=== PATIENT | female | born 1950 | race Caucasian/White ===

== ENCOUNTER 2020-07-18 12:03 | Emergency (ER) | payer MEDICARE, OTHER, SELFPAY ==
--- NOTE | ~2020-07-18 | XR_ITS ---
EXAMINATION: XR chest 1V portable INDICATION: Shortness of breath TECHNIQUE: Portable AP chest at 1301 hours COMPARISON: 01/08/2019 FINDINGS: A right internal jugular Port-A-Cath ends with its tip in the right atrium. An area of beauty culturist apprentice benjamin scarring is present in the left lung apex. No acute airspace opacities are identified. There is n o pleural effusion or pneumothorax. Median sternotomy wires are consistent with prior cardiac surgery . Calcified bilateral breast implants are noted. Surgical clips in the right upper quadrant are likel y from prior cholecystectomy. IMPRESSION: 1. No acute cardiopulmonary abnormality. Reviewed, dictated and finalized at location A.
[2020-07-18 12:08] VITALS: BP 129/74; PULSE 79; RESP 20; TEMP 36.8; O2SAT 96
--- NOTE | 2020-07-18 12:21 | ECG_ITS ---
Measurements Intervals [place] Rate: 79 P: 44 VA: 152 QRS: 39 QRSD: 82 T: 119 QT: 369 QTc: 425 Interpretive Statements SINUS RHYTHM ATRIAL PREMATURE COMPLEX INCOMPLETE RIGHT BUNDLE BRANCH BLOCK LOW QRS VOLTAGE- DIFFUSE LEADS POOR R WAVE PROGRESSION, ANTERIOR LEADS T WAVE ABNORMALITY IN HIGH LATERAL LEADS- CONSIDER ISCHEMIA BASELINE ARTIFACT- I, II, III, AVR, AVL, AVF, V1, V5 ABNORMAL ECG Electronically Signed On 07-18-2020 15:31:49 CDT by Neil Noble D.O.
[2020-07-18 12:52] LABS: Basophils Percent Auto 1.6 % (0.2-1.2); Eosinophils Absolute Auto 0.1 K/mm3 (0-0.3); Eosinophils Percent Auto 5.5 % (0-4.4); Hematocrit 28.9 % (37.0-47.0); Hemoglobin 9.8 g/dL (12.0-15.0); Immature Granulocyte Absolute 0.01 K/mm3 (0.00-0.031); Immature Granulocyte Percent A 0.5 % (0-0.5); Immature Platelet Fraction Pct 3.9 % (0.9-11.2); Mean Corpuscular HGB Conc 33.9 g/dl (32-36); Mean Corpuscular Hemoglobin 32.3 pg (26-34); Mean Corpuscular Volume 95.4 fl (80-100); Mean Platelet Volume 11.1 fl (7.4-10.4); Monocytes Absolute Auto 0.4 K/mm3 (0.1-0.6); Monocytes Percent Auto 19.2 % (2.6-8.5); Neutrophils Absolute Auto 0.9 K/mm3 (1.3-6.7); Neutrophils Percent Auto 51.2 % (45.5-73.1); Platelet Count Result 70 k/mm3 (150-375); Red Blood Count 3.03 M/mm3 (4.2-5.4); Red Cell Distribution Width 16.1 % (11.5-14.5)
[2020-07-18 13:00] LABS: INR 1.1; Prothrombin Time 13.7 Seconds (11.1-14.7)
[2020-07-18 13:09] LABS: White Blood Count 1.8 K/mm3 (4.5-10.0)
[2020-07-18 13:10] LABS: Alanine Aminotransferase 15 U/L (4-35); Albumin Level 3.5 g/dL (3.5-5.1); Alkaline Phosphatase 79 U/L (38-126); Anion Gap 7 mmol/L (8-16); Aspartate Amino Transferase 22 U/L (14-36); Bilirubin,Total 0.5 mg/dL (0.2-1.3); Blood Urea Nitrogen 24 mg/dL (7-17); Carbon Dioxide 33 mmol/L (22-30); Chloride 97 mmol/L (98-107); Estimated CRCL calculation 48 ml/min; Estimated Glomerular Filt Rate > 60; Glucose 113 mg/dL (65-105); Potassium 2.8 mmol/L (3.4-5.0); Sodium 137 mmol/L (137-145)
[2020-07-18 13:11] LABS: Burr Cells 1+ (NORMAL); Ovalocytes 1+ (NORMAL); Platelet Estimate Decreased (Adequate)
[2020-07-18 13:16] LABS: NT Pro B Type Natriuretic Pept 1750 PG/ML (5-100); Troponin I 0.015 ng/mL (0.000-0.034)
[2020-07-18 13:50] VITALS: BP 122/78; PULSE 78; RESP 20; O2SAT 99
[2020-07-18 15:30] VITALS: BP 135/97; PULSE 70; RESP 20; O2SAT 99
[2020-07-18 17:02] VITALS: BP 119/90; PULSE 80; RESP 20; O2SAT 99
--- NOTE | 2020-07-18 17:36 | ED.SOB ---
HPI - SOB/Dyspnea General Chief Complaint: Shortness of Breath/Dyspnea Stated Complaint: SOB Time Seen by Provider: 07/18/20 12:16 Source: patient Mode of arrival: ambulatory Limitations: no limitations History of Present Illness HPI Narrative: 70-year-old with a history of lung CA presently on chemotherapy here with complaints of shortness of breath, feeling weak and tired since early this morning. Patient states that she had a chemo a week and a half ago. She presently denies any fever or chills. She denies any cough or chest pain. Patient states that she has been having diarrhea on and off. Denies abdominal pain. MD elicited complaint: shortness of breath Pertinent past history: other (Lungs CA) Onset (ago): day(s) (1) Timing: constant Severity: moderate Exacerbating factors: nothing Relieving factors: nothing Associated symptoms: denies other symptoms Related Data Home oxygen amount: none Home Medications Medication Instructions Recorded Confirmed albuterol sulfate 90 mcg/actuation 1 puff INHALATION Q4H PRN 11/03/19 aerosol inhaler amlodipine 10 mg tablet 10 mg PO DAILY 11/03/19 aspirin 81 mg tablet,delayed 81 mg PO DAILY 11/03/19 release atorvastatin 80 mg tablet 80 mg PO DAILY 11/03/19 carvedilol 12.5 mg tablet 12.5 mg PO Q12H 11/03/19 furosemide 40 mg tablet 40 mg PO QAM 11/03/19 lisinopril 20 mg tablet 20 mg PO BID 11/03/19 potassium chloride 10 mEq 20 meq PO BID tablet 11/03/19 tablet,extended release Allergies Allergy/AdvReac Type Severity Reaction Status Date / Time No Known Allergies Allergy Verified 05/21/20 09:31 Review of Systems Review of Systems: All systems reviewed & are unremarkable except as noted in HPI and below Constitutional: Constitutional: Reports no additional constitutional complaints Eyes: Eyes: Reports no additional eye complaints ENT: Reports system reviewed and no additional complaints, except as documented Respiratory: Respiratory: Reports no additional respiratory complaints Gastrointestinal: Gastrointestinal: Reports as per HPI Musculoskeletal: Musculoskeletal: Reports no additional musculoskeletal complaints [facility] Past Medical History Medical History Aortic aneurysm COPD (chronic obstructive pulmonary disease) Hyperlipidemia Hypertension Lung cancer 05/2020 Nicotine dependence Surgical History Surgical History History of hernia repair 2018 History of hysterectomy Hx of breast implants, bilateral 1978 Hx of tonsillectomy Age 12 Family History Family History Mother Breast cancer Father Patient's father is Social History Social History Smoking status: Current every day smoker Tobacco type: cigarettes Smoking end date: 03/17/20 Additional smoking assessment comments: 1-5 cigarettes per day. 30 pack-year history Exam Narrative: Exam Narrative: GENERAL: Well-appearing, thin, and in no acute distress. HEAD: Normocephalic, atraumatic. EYES: PERRLA and EOMI. ENT: Nares clear, no rhinorrhea or epistaxis. Mucous membranes moist. NECK: Supple. CHEST: Clear to auscultation. No respiratory distress.has a port on the right side of the chest HEART: Regular rate and rhythm. No murmur heard. Normal peripheral pulses. ABDOMEN: Soft, nontender, normal active bowel sounds. EXTREMITIES: Normal range of motion. No edema. SKIN: Warm, dry, no rash. NEURO: No focal deficits. Alert and oriented x3. PSYCH: Normal mood and affect. Course Vital Signs Vital signs: Vital Signs Temperature 36.8 C 07/18/20 12:08 Pulse Rate 79 07/18/20 12:08 Respiratory Rate 20 07/18/20 12:08 Blood Pressure 129/74 07/18/20 12:08 Pulse Oximetry 96 07/18/20 12:08 Temperature 36.8 C 07/18
[2020-07-18 17:53] VITALS: BP 112/80; PULSE 76; RESP 18; O2SAT 99
== END 2020-07-18 17:55 | disposition home or self-care (01) ==
PROVIDERS: Emergency Provider Family Medicine
DX: E87.6 Hypokalemia (principal); C34.90 Malignant neoplasm of unspecified part of unspecified bronchus or lung; J44.9 Chronic obstructive pulmonary disease, unspecified; E78.5 Hyperlipidemia, unspecified; I10 Essential (primary) hypertension; F17.210 Nicotine dependence, cigarettes, uncomplicated; Z79.899 Other long term (current) drug therapy; Z79.82 Long term (current) use of aspirin
CPT/HCPCS: 36415; 71045; 80053; 83880; 84484; 85025; 85055; 85610; 93005; 96365; 96366; 99284; J3480

== ENCOUNTER 2020-08-14 11:40 | Emergency (ER) | payer MEDICARE, OTHER, SELFPAY ==
[2020-08-14] VITALS (7 sets, daily range): BP systolic 79–119; BP diastolic 35–76; PULSE 94–114; RESP 14–20; TEMP 37.8–39.4; O2SAT 94–100
--- NOTE | ~2020-08-14 | XR_ITS ---
EXAMINATION: XR chest 2V EXAM DATE: 08/14/2020 12:40 INDICATION: Fever, history lung cancer. TECHNIQUE: Frontal and lateral projections of the chest obtained and reviewed. Comparison is made to prior examination from 07/18/2020. FINDINGS: There is a right-sided portacatheter. Sternotomy wires are present without findings to sug gest sternal dehiscence. Chronic moderate hyperinflation. Left apical opacities unchanged, could be s carring or treated lung cancer. Mild cardiomegaly. There is no pneumothorax suspected. There are chol ecystectomy clips. Breast implants with capsular calcification, retraction. There are mild bony degen erative changes. IMPRESSION: 1. Moderate chronic hyperinflation. 2. Left apical opacity unchanged could be scarring or treated cancer. 3. No acute airspace disease. Reviewed, dictated and finalized at location A.
[2020-08-14] MEDS: SODIUM CHLORIDE 0.9% IV 1,000 ML 999 ML IV CONT ×3 (12:45→16:33)
[2020-08-14] MEDS: ONDANSETRON INJ 4 MG/2 ML VIAL IV PUSH (12:45)
[2020-08-14] MEDS: ACETAMINOPHEN 500 MG TABLET 1000 MG PO (13:39)
[2020-08-14 13:42] LABS: Hematocrit 24.8 % (35.0-42.0); Hemoglobin 8.3 g/dL (11.7-13.8); Immature Platelet Fraction Pct 3.5 % (1.0-7.0); Mean Corpuscular HGB Conc 33.5 g/dL (32.0-36.0); Mean Corpuscular Hemoglobin 33.6 pg (27.0-31.0); Mean Corpuscular Volume 100.4 fL (78.0-102.0); Mean Platelet Volume 11.9 fl (9.2-11.8); Platelet Count Result 68 K/mm3 (150-420); Red Blood Count 2.47 M/mm3 (4.20-5.40); Red Cell Distribution Width 18.6 % (11.6-14.4)
[2020-08-14] MEDS: DIPHENOXYLATE/ATROPINE (*CRX) 2.5 MG TABLET 2 TABLET PO (13:52)
[2020-08-14 13:54] LABS: White Blood Count 0.5 K/mm3 (4.8-10.8)
[2020-08-14 13:55] LABS: Alanine Aminotransferase 22 U/L (14-59); Albumin Level 2.8 g/dL (3.4-5.0); Alkaline Phosphatase 70 U/L (46-116); Anion Gap 11 mmol/L (8-16); Aspartate Amino Transferase 16 U/L (15-37); Bilirubin,Total 0.6 mg/dL (0.00-1.00); Blood Urea Nitrogen 14 mg/dL (7-18); Calcium 7.3 mg/dL (8.5-10.1); Carbon Dioxide 24 mmol/L (21-32); Chloride 103 mmol/L (98-108); Estimated CRCL calculation 55 ml/min; Estimated Glomerular Filt Rate > 60; Glucose 132 mg/dL (70-99); Osmolality Calculated 288 mOsm/kg (285-295); Potassium 2.9 mmol/L (3.5-5.1); Sodium 138 mmol/L (136-145); Total Protein 5.8 g/dL (6.4-8.2)
[2020-08-14 13:56] LABS: Lactic Acid Reflex 0.6 mmol/L (0.4-2.0)
--- NOTE | 2020-08-14 14:49 | PC.NURSE ---
DR. FOURNIER CONTACTED AT [id number] FOR CONSULT
[2020-08-14] MEDS: KCL 20 MEQ/SW 100 ML 100 ML 50 MEQ IVPB (15:10)
--- NOTE | 2020-08-14 15:43 | PC.NURSE ---
[address] [facility] SUPERVISOR, LUIS, CONTACTED AT THIS TIME FOR TRANSFER REQUESTED BY PATIENT. 2080 DR. ELIAS CONTACTED [facility] AND SPOKE WITH [facility]. DR. ELIAS ACCEPTED PATIENT. AWAITING BED PLACEMENT.
--- NOTE | 2020-08-14 16:07 | ED.FEVER ---
HPI - Fever General Chief Complaint: Fever Stated Complaint: nausea, exhaustion, possible dehydration Source: patient and family Mode of arrival: ambulatory Limitations: no limitations History of Present Illness HPI Narrative: this is a 70-year-old female presents today with some nausea with diarrhea, patient has a temperature of 102.9? 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 Patient has had this some nausea with no vomiting denies some shortness of breath no abdominal pain no chest pain or pressure. Patient also has a history of COPD, hypertension, hyperlipidemia. Patient receives care from her oncologist at [facility] in [address] [place] [address]. patient had a white count drawn on July 2020 that was 1.8. MD elicited complaint: fever Pertinent past history: immunosuppression Onset (ago): day(s) Measured temperature: 102.9 C Context: on chemotherapy and on immunosuppressant(s) Exacerbating factors: nothing Relieving factors: acetaminophen Associated symptoms: nausea and diarrhea Related Data Home Medications Medication Instructions Recorded Confirmed albuterol sulfate 90 mcg/actuation 1 puff INHALATION Q4H PRN 11/03/19 08/14/20 aerosol inhaler aspirin 81 mg tablet,delayed 81 mg PO DAILY 11/03/19 08/14/20 release atorvastatin 80 mg tablet 80 mg PO DAILY 11/03/19 08/14/20 carvedilol 12.5 mg tablet 12.5 mg PO Q12H 11/03/19 08/14/20 furosemide 40 mg tablet 40 mg PO QAM 11/03/19 08/14/20 potassium chloride 10 mEq 20 meq PO BID tablet 11/03/19 08/14/20 tablet,extended release dexamethasone 4 mg PO DIRECTED 08/14/20 08/14/20 rivaroxaban [Xarelto] 20 mg PO HS 08/14/20 08/14/20 sacubitril-valsartan [Entresto] 1 tablet PO BID 08/14/20 08/14/20 Allergies Allergy/AdvReac Type Severity Reaction Status Date / Time No Known Allergies Allergy Verified 07/28/20 14:31 Review of Systems Review of Systems: All systems reviewed & are unremarkable except as noted in HPI and below PMFSH Past Medical History Medical History Aortic aneurysm COPD (chronic obstructive pulmonary disease) Hyperlipidemia Hypertension Lung cancer 05/2020 Squamous Carcinoma of lung left Nicotine dependence Surgical History Surgical History History of hernia repair 2018 History of hysterectomy Hx of breast implants, bilateral 1978 Hx of tonsillectomy Age 12 Family History Family History Mother Breast cancer Father Patient's father is Social History Social History Smoking status: Current every day smoker Tobacco type: cigarettes Smoking end date: 03/17/20 Additional smoking assessment comments: 1-5 cigarettes per day. 30 pack-year history Exam Const: General: no acute distress and alert Orientation/consciousness: patient oriented x3 HENMT: Head: normal to inspection and contusion Eyes: Conjunctivae: conjunctivae normal Pupils: Equal, round and reactive pupils present EOM: EOMs intact bilaterally Neck: Neck: normal visual inspection, no lymphadenopathy and no meningeal signs Chest: Chest palpation & inspection: normal inspection of the chest Resp: Effort & Inspection: normal respiratory effort Auscultation: clear to auscultation bilaterally Cardio: Rate: regular rate Rhythm: regular rhythm GI: GI Palp: Yes Soft to palpation and Yes Rebound tenderness present Percussion: Yes normal to percussion : General: Yes no CVA tenderness Skin: General skin exam: normal color Rashes: no rashes Neuro: General: patient oriented x3 Extrem: General: normal to inspection Psych: Mental Status: mental status grossly normal Course [employer]
--- NOTE | 2020-08-14 17:12 | PC.NURSE ---
[facility] CALLED FOR ALS TRANSFER. NOT AVAILABLE. [facility] PAGED FOR TRANSFER
--- NOTE | 2020-08-14 17:38 | PC.NURSE ---
PT BEGAN C/O SUDDEN SHORTNESS OF BREATH AND FEELINGS OF PANIC. RN NOTICED INCREASED WORK OF BREATHING AND RATTLING SOUND WITH INSPIRATION. PT REQUESTED TO SIT ON THE SIDE OF BED. O2 SAT 100% ON 2 L NC. HR 121. RN CONTACTED [facility] FOR IMMEDIATE EVALUATION. [facility] AT BEDSIDE. NO NEW ORDERS AT THIS TIME.
[2020-08-16 18:12] LABS: SARS-CoV-2 RNA PCR Negative
== END 2020-08-14 18:09 | disposition short-term general hospital (02) ==
PROVIDERS: Emergency Provider Emergency Medicine; PCP Nurse Practitioner Family
DX: D70.8 Other neutropenia (principal); A41.9 Sepsis, unspecified organism; Z20.828 Contact with and (suspected) exposure to other viral communicable diseases; J44.9 Chronic obstructive pulmonary disease, unspecified; E78.5 Hyperlipidemia, unspecified; I10 Essential (primary) hypertension; C34.90 Malignant neoplasm of unspecified part of unspecified bronchus or lung; F17.200 Nicotine dependence, unspecified, uncomplicated
CPT/HCPCS: 36415; 71046; 80053; 83605; 85027; 85055; 87040; 87077; 87186; 87635; 96361; 96365; 96366; 96367; 96375; 99285; A9270; C9803; J2405; J2543; J3480; J7030; U0003

== ENCOUNTER 2020-08-24 14:30 | Inpatient (IN) | payer MEDICARE, OTHER, SELFPAY ==
--- NOTE | ~2020-08-24 | XR_ITS ---
EXAMINATION: XR chest 1V portable DATE: 08/25/2020 08:56 INDICATION: Shortness of breath. TECHNIQUE: A single frontal view of the chest was obtained on 2 radiographs. COMPARISON: Chest 2 views 08/14/2020, chest CT 11/28/2016 FINDINGS: There is a diffuse interstitial pattern, consistent with mild pulmonary edema. There is a m ass in left upper lobe. No pleural effusion or pneumothorax. Cardiomegaly is noted. There is an elect ronic implant in left anterior chest wall. Mediastinal wires are noted. There is a right internal jug ular port with tip in relation. IMPRESSION: 1. Mild pulmonary edema. 2. Mass in left upper lobe, likely malignancy and treatment change. 3. Cardiomegaly. Reviewed, dictated and finalized at location A.
[2020-08-24 15:15] VITALS: BMI 28.0
[2020-08-24 15:51] VITALS: BP 119/85; PULSE 91; RESP 20; TEMP 36.9; O2SAT 98
[2020-08-24] MEDS: guaiFENesin 12 HR 600 MG TABCR 1200 MG PO (16:56)
[2020-08-24] MEDS: FUROSEMIDE 40 MG TABLET PO (16:56)
[2020-08-24] MEDS: POTASSIUM CHLORIDE 20 MEQ TABLET PO (16:56)
[2020-08-24] MEDS: AMOXICILLIN 500 MG CAPSULE 1000 MG PO (16:57)
[2020-08-24] MEDS: SACUBITRIL/VALSARTAN 24-26 MG TABLET 1 TAB PO (16:57)
--- NOTE | 2020-08-24 17:01 | ADMGEN ---
This patient, Ella Mcallister, was admitted to 2nd Floor Room 227-2. Patient/family oriented to hospital policies and general routines including ID bracelet, bed and alarms, visiting hours, pain management, procedures, bathroom and other care routines, personal items, smoking policy, room service/diet, and visiting hours. Valuables list has been completed.Pt states she has 02 machine at home but does not use on a daily basis. Has purse with her but wants to keep it at bedside until comes tomorrow and he will take it home. Information on how to activate the Rapid Response Team has been discussed. Patient/Family are encouraged to report perceived risks to care and to ask questions if they do not understand what they are told or what they should do.
--- NOTE | 2020-08-24 17:04 | PC.NURSE ---
PT and OT in for eval, they will set pt up with dinner tray
--- NOTE | 2020-08-24 17:50 | PC.NURSE ---
pt walks to bathroom with no physical difficulties, gait belt and walker used, pt has small anxiety attack, reports she was unaware how far the bathroom was and was scared she would pee her pants, pt is calmed down and back in recliner
[2020-08-24] MEDS: ALPRAZolam (*CRX) 0.5 MG TABLET PO (19:01)
--- NOTE | 2020-08-24 19:04 | PC.NURSE ---
pt is anxious, asks for her anxiety pill, also requests medicine to help her sleep if she has any, rails up, hob up, warm blanket given
[2020-08-24] MEDS: diphenhydrAMINE HCl CAP 25 MG CAPSULE PO (20:03)
--- NOTE | 2020-08-24 20:56 | PC.NURSE ---
pt sitting up at bedside, c/o feeling anxious still, pt is aware she can't have anymore xanex for a few hours, pt has been given benadryl for sleep
[2020-08-24] MEDS: traMADol HCL (*CRX) 25 MG TABLET PO (22:24)
[2020-08-24 23:25] VITALS: BP 120/79; PULSE 91; RESP 20; TEMP 36.6; O2SAT 93
--- NOTE | 2020-08-24 23:25 | PC.NURSE ---
Complaints of SOB feeling, dusky color noted, oxygen at 2 L NC, noted nasal prongs not fitting in nose properly, re adjusted prongs assisted to better position in bed and increase oxygen to 3 L NC, immediate improvement of saturation of 80% to 93% with intervention, noted coarse breath sounds, no distress noted, color improved, will monitor closely
--- NOTE | 2020-08-24 23:49 | PC.NURSE ---
Eyes closed resting quietly, no distress noted, oxygen on at 3 L NC
--- NOTE | 2020-08-25 01:07 | PC.NURSE ---
sleeping, no distress, oxygen on at 3 L NC
--- NOTE | 2020-08-25 03:00 | PC.NURSE ---
Resting in bed, denies needs, amoxil given PO, has been resting fairly well, oxygen in place
[2020-08-25] MEDS: AMOXICILLIN 500 MG CAPSULE 1000 MG PO ×2 (03:31→17:34)
--- NOTE | 2020-08-25 05:30 | PC.NURSE ---
Found patient in chair, states tired of laying in bed,educated on use of call light and safety to call for assistance, denies needs, blanket given, personal items and call light given to patient for ease of use, oxygen on, coffee given
[2020-08-25 05:46] LABS: Basophils Absolute Auto 0.03 K/mm3 (0.00-0.10); Basophils Percent Auto 0.4 % (0.0-1.0); Eosinophils Absolute Auto 0.02 K/mm3 (0.02-0.50); Eosinophils Percent Auto 0.3 % (1.0-6.0); Hemoglobin 9.4 g/dL (11.7-13.8); Immature Granulocyte Absolute 0.19 K/mm3 (0.00-0.00); Immature Granulocyte Percent A 2.6 % (0.0-0.0); Immature Platelet Fraction Pct 3.3 % (1.0-7.0); Lymphocytes Absolute Auto 0.62 K/mm3 (1.10-4.50); Lymphocytes Percent Auto 8.5 % (18.0-42.0); Mean Corpuscular HGB Conc 32.4 g/dL (32.0-36.0); Mean Corpuscular Hemoglobin 32.8 pg (27.0-31.0); Mean Platelet Volume 10.5 fl (9.2-11.8); Monocytes Absolute Auto 0.51 K/mm3 (0.10-0.90); Neutrophils Percent Auto 81.2 % (50.0-70.0); Nucleated Red Blood Cells Absolute Auto 0.07 K/mm3 (0.00-0.00); Platelet Count Result 84 K/mm3 (150-420); Red Blood Count 2.87 M/mm3 (4.20-5.40); Red Cell Distribution Width 19.3 % (11.6-14.4); White Blood Count 7.3 K/mm3 (4.8-10.8)
[2020-08-25 05:57] LABS: INR 1.2; Partial Thromboplastin Time 28.9 SEC (22.3-31.6); Prothrombin Time 12.8 Seconds (9.64-11.0)
[2020-08-25 06:04] LABS: Alanine Aminotransferase 83 U/L (14-59); Albumin Level 2.7 g/dL (3.4-5.0); Alkaline Phosphatase 163 U/L (46-116); Anion Gap 1 mmol/L (8-16); Aspartate Amino Transferase 25 U/L (15-37); Bilirubin,Total 0.6 mg/dL (0.00-1.00); Blood Urea Nitrogen 14 mg/dL (7-18); CRP 3.4 mg/dL (0.0-0.9); Calcium 8.3 mg/dL (8.5-10.1); Carbon Dioxide 38 mmol/L (21-32); Chloride 106 mmol/L (98-108); Estimated CRCL calculation 64 ml/min; Estimated Glomerular Filt Rate > 60; Glucose 120 mg/dL (70-99); Magnesium 1.5 mg/dL (1.8-2.4); Osmolality Calculated 301 mOsm/kg (285-295); Potassium 3.8 mmol/L (3.5-5.1); Sodium 145 mmol/L (136-145); Total Protein 5.8 g/dL (6.4-8.2)
--- NOTE | 2020-08-25 06:47 | PM.IMHP ---
H&P: HPI History of Present Illness Date/Time: 08/25/20 06:47 Chief complaint: REHAB Narrative: Ella Mcallister is a 70 year old female w/ known h.o Lung Ca, Aortic Aneurysmm DVT, HTN, COPD presented to ER for eval of SOB, Nausea and gen weakness and cough that started on 08/04/20. She was evaluated w/ sepsis and underwent IV Abx. Source of sepsis was multifactorial (Colitis vs CAP), her COVID-19 was negative. She underwent IV abx w/ Zosyn, 3L IVF w/ NS, Lomotil, Zofran for acute enteritis. While at [facility] she also underwent a Pacemaker placemement. Patient has a h/o lung Ca for which she has underwent Chemo and radiation for lung ca 4 years ago w/ success. Her Lung Ca recurred in 05/31/19. She quit smoking in 03/2019. Review of Systems Review of Systems: All systems reviewed & are unremarkable except as noted in HPI and below Constitutional: Constitutional: Reports as per HPI, Reports no additional constitutional complaints, Denies body ache(s), Denies chills, Denies difficulty sleeping, Reports fatigue, Reports lethargy, Denies night sweats and Reports weakness Eyes: Eyes: Reports as per HPI and Reports no additional eye complaints ENT: Reports system reviewed and no additional complaints, except as documented and Reports as per HPI Cardiovascular: Cardiovascular: Reports as per HPI, Reports no additional cardiovascular complaints and Denies chest pain Respiratory: Respiratory: Reports as per HPI, Reports no additional respiratory complaints and Denies dyspnea Gastrointestinal: Gastrointestinal: Reports as per HPI, Reports no additional gastrointestinal complaints, Denies abdominal pain, Denies bloating, Denies constipation, Denies nausea and Denies vomiting Genitourinary: Genitourinary: Reports no additional female genitourinary complaints and Reports as per HPI Musculoskeletal: Musculoskeletal: Reports as per HPI Integumentary/Breasts: Skin/Breast: Reports as per HPI Neurologic: Reports as per HPI Psychiatric: Psychiatric: Reports no additional psychiatric complaints, Reports as per HPI and Reports anxiety [facility] Past Medical History Medical History (Updated 09/03/20 @ 07:28 by Kavon Morrison MD) Aortic aneurysm Atrial fibrillation Chronic systolic CHF (congestive heart failure) COPD (chronic obstructive pulmonary disease) Enteritis History of sepsis Hyperlipidemia Hypertension Lung cancer 05/2020 Squamous Carcinoma of lung left Nicotine dependence Surgical History Surgical History (Updated 09/03/20 @ 07:27 by Kavon Morrison MD) History of hernia repair 2017 History of hysterectomy Hx of breast implants, bilateral 1978 Hx of tonsillectomy Age 12 S/P ablation of atrial fibrillation S/P placement of cardiac pacemaker Family History Family History Mother Breast cancer Father Patient's father is Social History Social History Smoking status: Never smoker Tobacco type: cigarettes Second hand tobacco smoke exposure: No Smoking end date: 03/17/20 Additional smoking assessment comments: 1-5 cigarettes per day. 30 pack-year history Alcohol intake: never Substance use: current Substance use type: other Other substance usage details: CBD gummies Last use: 08/11/20 Gender identity (if verbalized by the patient): Female Spiritual care concerns: No Meds Home Medications and Allergies Home Medications Medication Instructions Recorded Confirmed Type albuterol sulfate 90 mcg/actuation 1 puff INHALATION Q4H PRN 11/03/19 08/24/20 History aerosol inhaler atorvastatin 80 mg tablet 80 mg PO DAILY 11/03/19 08/24/20 History furosemide 40 mg tablet 40 mg PO BID 11/03/19 08/24/20 History potassium chloride 10 mEq 20 meq PO BID tablet 11/03/19 08/24/20 History tablet,extended release rivaroxaban [Xarelto] 20 mg PO DAILY 10
[2020-08-25 08:00] VITALS: BP 122/76; PULSE 76; RESP 18; TEMP 36.6; O2SAT 96
--- NOTE | 2020-08-25 08:03 | PM.IMPN ---
Progress Note: A&P Assessment and Plan (1) S/P placement of cardiac pacemaker: Code(s): Z95.0 - Presence of cardiac pacemaker <Tom CramerJERSEY Donald - Last Filed: 08/25/20 11:14> Status: Acute <Tom DeanREGGIE vasquez-C - Last Filed: 08/25/20 11:14> Assessment and Plan: 08/25/2020 patient presents with generalized weakness after this procedure was performed and is in our facility. Will have patient work with physical therapy occupational therapy, will continue Xarelto <Tom CramerDolores Sims APN-C - Last Filed: 08/25/20 11:14> (2) Lung cancer: Code(s): C34.90 - Malignant neoplasm of unspecified part of unspecified bronchus or lung <Tom CramerSHELLY DonaldC - Last Filed: 08/25/20 11:14> Status: Acute <Tom CramerSHELLY DonaldC - Last Filed: 08/25/20 11:14> Assessment and Plan: 08/25/2020 patient was taking chemotherapy however this is on hold until patient can increase her energy and be discharged and then at that time restart her chemotherapy, patient does complain of some labored breathing which was improved after taking her Ventolin MDI <Tom CramerSHELLY DonaldC - Last Filed: 08/25/20 11:14> (3) Generalized weakness: Code(s): R53.1 - Weakness <Tom CramerDolores Sims APN-C - Last Filed: 08/25/20 11:14> Status: Acute <Tom CramerDolores Sims APN-C - Last Filed: 08/25/20 11:14> Assessment and Plan: 08/25/2020 patient will be participating with PT/OT for reconditioning, ability to perform ADLs, to the point where she can be discharged and restart her chemotherapy, attempt to encourage patient to eat, she has been nauseated when eating and Zofran added, will see if this helps, will add Ensure if not already consuming <Tom CramerDolores Sims APN-C - Last Filed: 08/25/20 11:14> (4) Hyperlipidemia: Code(s): E78.5 - Hyperlipidemia, unspecified <Tom Dougherty JERSEY Sims - Last Filed: 08/25/20 11:14> Status: Acute <Tom DeanJERSEY vasquez - Last Filed: 08/25/20 11:14> Assessment and Plan: 08/25/2020 continue atorvastatin <Tom DeanJERSEY vasquez - Last Filed: 08/25/20 11:14> (5) Hypertension: Code(s): I10 - Essential (primary) hypertension <Tom Dougherty JERSEY Sims - Last Filed: 08/25/20 11:14> Status: Acute <Tom DeanJERSEY vasquez - Last Filed: 08/25/20 11:14> Assessment and Plan: 08/25/2020 vital signs stable and patient is afebrile, will continue to monitor <Tom Dougherty JERSEY Sims - Last Filed: 08/25/20 11:14> Subjective Date/time seen: 08/25/20 08:03 Patient states that she has decreased appetite. Though she is trying to eat. Patient says mostly this is because of a little nausea when eating. We discussed adding Zofran and she is okay with this. Patient stated her breathing this morning was not changed much since yesterday and after giving her her Ventolin MDI she said her breathing improved a little bit and we made this scheduled q.6 hours. Patient denies chest pain, racing heart palpitations. Patient denies any numbness or tingling in extremities. <JERSEY Leyva - Last Filed: 08/25/20 11:14> Review of Systems Constitutional: Constitutional: Reports lethargy and Reports poor appetite <Tom CramerJERSEY Donald - Last Filed: 08/25/20 11:14> Cardiovascular: Cardiovascular: Denies chest pain, Denies chest pain at rest and Denies chest pain with activity <JERSEY Leyva - Last Filed: 08/25/20 11:14> Respiratory: Respiratory: Reports cough (Slightly productive) and Reports dyspnea (improved) <JERSEY Leyva - Last Filed: 08/25/20 11:14> Gastrointestinal: Gastrointestinal: Reports nausea (when eating) <JERSEY Leyva - Last Filed: 08/25/20 11:14> Musculoskeletal: Comments: generalized muscle weakness <JERSEY Leyva - Last Filed: 08/25/20 11:14> Exam Const: General: cooperative, alert, awake, Physically active and tired appearing <Rich
--- NOTE | 2020-08-25 09:00 | ECG_ITS ---
Measurements Intervals [place] Rate: 90 P: [place]: 0 QRS: 134 QRSD: 167 T: -31 QT: 389 QTc: 477 Interpretive Statements ELECTRONIC VENTRICULAR PACEMAKER NO FURTHER INTERPRETATION IS POSSIBLE ATYPICAL ECG Electronically Signed On 08-25-2020 8:17:11 CDT by Neil Noble D.O.
[2020-08-25] MEDS: SPIRONOLACTONE 25 MG TABLET PO (09:16)
[2020-08-25] MEDS: MAGNESIUM OXIDE 400 MG TABLET PO (09:16)
[2020-08-25 09:17] VITALS: PULSE 75
[2020-08-25] MEDS: guaiFENesin 12 HR 600 MG TABCR 1200 MG PO ×2 (09:17→16:46)
[2020-08-25] MEDS: POTASSIUM CHLORIDE 20 MEQ TABLET PO ×2 (09:17→16:46)
[2020-08-25] MEDS: METOPROLOL SUCCINATE EXT REL 50 MG TABCR 100 MG PO (09:17)
[2020-08-25] MEDS: PANTOPRAZOLE SOD SESQUIHYDRATE 20 MG TAB PO (09:18)
[2020-08-25] MEDS: FLUoxetine HCL 10 MG CAPSULE 20 MG PO (09:18)
[2020-08-25] MEDS: ATORVASTATIN 40 MG TABLET 80 MG PO (09:19)
[2020-08-25] MEDS: SACUBITRIL/VALSARTAN 24-26 MG TABLET 1 TAB PO ×2 (09:19→16:47)
[2020-08-25] MEDS: FUROSEMIDE 40 MG TABLET PO ×2 (09:19→16:46)
[2020-08-25] MEDS: MAGNESIUM SULF 4 GM/WATER100ML 4 GM/100 ML BAG IVPB (09:57)
--- NOTE | 2020-08-25 10:46 | PCOTNOTE ---
OT attempted to see patient for AM treatment however reports feeling exhausted and tired and needs to rest. She reports that she will participate this PM. MS
[2020-08-25] MEDS: ONDANSETRON HCL ODT 4 MG TABLET PO (11:23)
[2020-08-25] MEDS: ALBUTEROL SULFATE (*SP) INHALER 1 PUFF INHALATION ×3 (12:57→23:24)
[2020-08-25 13:00] VITALS: BP 120/72; PULSE 88; RESP 20; TEMP 36.8; O2SAT 97
[2020-08-25 15:00] VITALS: BP 124/74; PULSE 88; RESP 20; TEMP 36.6; O2SAT 97
[2020-08-25] MEDS: ALPRAZolam (*CRX) 0.5 MG TABLET PO ×2 (16:50→23:27)
--- NOTE | 2020-08-25 17:51 | PC.NURSE ---
up with o2, walker, and gait belt to br. claims she gets panic attacks in close quarters. claims br is to small. talked her through. spo2 98% on 3L. back to bed and more relaxed and prn given. see mar. rests with eyes closed and resp even and unlabored @ this time.
--- NOTE | 2020-08-25 18:29 | PC.NURSE ---
sleeping quietly at this time. hob up.
[2020-08-25] MEDS: traMADol HCL (*CRX) 25 MG TABLET PO (19:21)
[2020-08-25 23:46] VITALS: BP 134/96; PULSE 90; RESP 20; TEMP 36.6; O2SAT 98
--- NOTE | 2020-08-26 01:32 | PC.NURSE ---
pt sleeping, respirations even and regular, no evidence of distress noted, belongings within reach
[2020-08-26] MEDS: AMOXICILLIN 500 MG CAPSULE 1000 MG PO ×2 (05:37→16:45)
[2020-08-26] MEDS: ALBUTEROL SULFATE (*SP) INHALER 1 PUFF INHALATION ×3 (05:37→16:46)
[2020-08-26 06:01] LABS: Basophils Absolute Auto 0.02 K/mm3 (0.00-0.10); Basophils Percent Auto 0.3 % (0.0-1.0); Eosinophils Absolute Auto 0.01 K/mm3 (0.02-0.50); Eosinophils Percent Auto 0.2 % (1.0-6.0); Hematocrit 29.1 % (35.0-42.0); Hemoglobin 9.2 g/dL (11.7-13.8); Immature Granulocyte Absolute 0.18 K/mm3 (0.00-0.00); Immature Granulocyte Percent A 2.8 % (0.0-0.0); Immature Platelet Fraction Pct 4.5 % (1.0-7.0); Lymphocytes Absolute Auto 0.62 K/mm3 (1.10-4.50); Lymphocytes Percent Auto 9.7 % (18.0-42.0); Mean Corpuscular HGB Conc 31.6 g/dL (32.0-36.0); Mean Corpuscular Hemoglobin 32.6 pg (27.0-31.0); Mean Corpuscular Volume 103.2 fL (78.0-102.0); Mean Platelet Volume 11.2 fl (9.2-11.8); Monocytes Absolute Auto 0.49 K/mm3 (0.10-0.90); Monocytes Percent Auto 7.7 % (2.0-11.0); Neutrophils Absolute Auto 5.1 K/mm3 (1.7-7.2); Neutrophils Percent Auto 79.3 % (50.0-70.0); Nucleated Red Blood Cells Absolute Auto 0.06 K/mm3 (0.00-0.00); Nucleated Red Blood Cells Perc 0.9 % (0-0.0); Platelet Count Result 81 K/mm3 (150-420); Red Blood Count 2.82 M/mm3 (4.20-5.40); Red Cell Distribution Width 19.5 % (11.6-14.4); White Blood Count 6.4 K/mm3 (4.8-10.8)
[2020-08-26 06:16] LABS: Alanine Aminotransferase 62 U/L (14-59); Albumin Level 2.8 g/dL (3.4-5.0); Alkaline Phosphatase 152 U/L (46-116); Anion Gap 3 mmol/L (8-16); Aspartate Amino Transferase 22 U/L (15-37); Bilirubin,Total 0.7 mg/dL (0.00-1.00); Blood Urea Nitrogen 14 mg/dL (7-18); Calcium 8.5 mg/dL (8.5-10.1); Carbon Dioxide 38 mmol/L (21-32); Chloride 105 mmol/L (98-108); Estimated CRCL calculation 67 ml/min; Estimated Glomerular Filt Rate > 60; Glucose 116 mg/dL (70-99); Magnesium 1.9 mg/dL (1.8-2.4); Osmolality Calculated 303 mOsm/kg (285-295); Potassium 4.3 mmol/L (3.5-5.1); Sodium 146 mmol/L (136-145); Total Protein 5.8 g/dL (6.4-8.2)
[2020-08-26 07:36] VITALS: BP 135/89; PULSE 89; RESP 20; TEMP 36.5; O2SAT 97
--- NOTE | 2020-08-26 08:37 | PC.NURSE ---
refused breakfast, doesn't feel like eating
[2020-08-26] MEDS: SACUBITRIL/VALSARTAN 24-26 MG TABLET 1 TAB PO ×2 (09:14→16:45)
[2020-08-26] MEDS: POTASSIUM CHLORIDE 20 MEQ TABLET PO ×2 (09:14→16:46)
[2020-08-26] MEDS: ATORVASTATIN 40 MG TABLET 80 MG PO (09:19)
[2020-08-26] MEDS: MAGNESIUM OXIDE 400 MG TABLET PO (09:20)
[2020-08-26] MEDS: FUROSEMIDE 40 MG TABLET PO ×2 (09:20→16:46)
[2020-08-26] MEDS: FLUoxetine HCL 10 MG CAPSULE 20 MG PO (09:20)
[2020-08-26] MEDS: SPIRONOLACTONE 25 MG TABLET PO (09:21)
[2020-08-26] MEDS: guaiFENesin 12 HR 600 MG TABCR 1200 MG PO ×2 (09:21→16:46)
[2020-08-26] MEDS: PANTOPRAZOLE SOD SESQUIHYDRATE 20 MG TAB PO (09:21)
[2020-08-26 09:22] VITALS: PULSE 89
[2020-08-26] MEDS: METOPROLOL SUCCINATE EXT REL 50 MG TABCR 100 MG PO (09:22)
--- NOTE | 2020-08-26 11:52 | PC.NURSE ---
Up to commode at this time, good large formed BM noted, slight ANG noted with void, back to sit on edge of bed
[2020-08-26] MEDS: ALPRAZolam (*CRX) 0.5 MG TABLET PO ×2 (12:18→18:24)
--- NOTE | 2020-08-26 12:20 | PC.NURSE ---
xanax given for anxiety, refused riley medrano at this time
--- NOTE | 2020-08-26 13:37 | PC.NURSE ---
confirmed patient home medication was left at [facility], they will call back to see if they can be mailed to patient home directly, spouse here to visit at this time
--- NOTE | 2020-08-26 14:05 | PC.NURSE ---
Resting quietly with HOB elevated, xanax has helped, feeling less anxious
[2020-08-26 16:00] VITALS: BP 140/91; PULSE 91; RESP 22; TEMP 36.3; O2SAT 82
--- NOTE | 2020-08-26 16:53 | PC.NURSE ---
pt having anxiety attack, xanax not due again until 1814, pt asks if dr will increase her dosage and give her something to help her sleep, reports she has not slept in 2 days, charge nurse notified
[2020-08-26 16:59] VITALS: O2SAT 97
--- NOTE | 2020-08-26 17:25 | PC.NURSE ---
pt having another anxiety attack, refusing dinner, pt requests dr be called for more medication because she can't calm down, 02 checked and is 97% with steady 90 pulse, charge nurse notified
[2020-08-26] MEDS: traMADol HCL (*CRX) 25 MG TABLET PO (17:42)
--- NOTE | 2020-08-26 17:43 | PC.NURSE ---
notified that patient is c/o anxiety and insomnia. N.O. received.
--- NOTE | 2020-08-26 17:52 | PC.NURSE ---
physician has been notified of pt's request for more xanax and has declined to use a higher dose, pt wishes to speak with dr, states she is going to have a full blown panic attack soon, requests something to knock her out for the night , charge nurse notified
[2020-08-27] VITALS: BP 135/86; PULSE 90; RESP 22; TEMP 35.8; O2SAT 96
[2020-08-27] MEDS: ALBUTEROL SULFATE (*SP) INHALER 1 PUFF INHALATION ×5 (00:32→23:38)
[2020-08-27] MEDS: ALPRAZolam (*CRX) 0.5 MG TABLET PO ×4 (00:32→23:38)
[2020-08-27] MEDS: traMADol HCL (*CRX) 25 MG TABLET PO ×2 (04:45→21:17)
[2020-08-27] MEDS: AMOXICILLIN 500 MG CAPSULE 1000 MG PO ×2 (06:19→17:11)
[2020-08-27 07:10] VITALS: BP 138/91; PULSE 88; RESP 20; TEMP 36; O2SAT 98
--- NOTE | 2020-08-27 07:10 | PC.NURSE ---
xanax requested, given, feeling anxious, no distress noted, oxygen on at 3L NC, did n't rest well
--- NOTE | 2020-08-27 08:01 | PC.NURSE ---
Refused breakfast, states just juice, no food
--- NOTE | 2020-08-27 09:02 | PC.NURSE ---
Napping off and on, resp even and non labored at this time
[2020-08-27 09:23] VITALS: PULSE 88
[2020-08-27] MEDS: METOPROLOL SUCCINATE EXT REL 50 MG TABCR 100 MG PO (09:23)
[2020-08-27] MEDS: guaiFENesin 12 HR 600 MG TABCR 1200 MG PO ×2 (09:23→17:12)
[2020-08-27] MEDS: PANTOPRAZOLE SOD SESQUIHYDRATE 20 MG TAB PO (09:23)
[2020-08-27] MEDS: MAGNESIUM OXIDE 400 MG TABLET PO (09:23)
[2020-08-27] MEDS: ATORVASTATIN 40 MG TABLET 80 MG PO (09:24)
[2020-08-27] MEDS: FUROSEMIDE 40 MG TABLET PO ×2 (09:24→17:13)
[2020-08-27] MEDS: SPIRONOLACTONE 25 MG TABLET PO (09:25)
[2020-08-27] MEDS: POTASSIUM CHLORIDE 20 MEQ TABLET PO ×2 (09:25→17:13)
[2020-08-27] MEDS: FLUoxetine HCL 10 MG CAPSULE 20 MG PO (09:25)
[2020-08-27] MEDS: SACUBITRIL/VALSARTAN 24-26 MG TABLET 1 TAB PO ×2 (09:25→17:12)
--- NOTE | 2020-08-27 11:55 | PC.NURSE ---
SBA used to get from bed to commode, slight ding noted,
--- NOTE | 2020-08-27 12:04 | PC.NURSE ---
Sitting on edge of bed for lunch,
[2020-08-27 16:00] VITALS: BP 138/89; PULSE 90; RESP 20; TEMP 36.1; O2SAT 97
--- NOTE | 2020-08-27 18:11 | PC.NURSE ---
Has napped off and on most of the day, concerned not getting anxiety medication like she takes at home, educated on as needed medications and that she needs to ask for them while she is here, no s/s of anxiety noted at this time, ate poorly today, is taking fluids fairly well
[2020-08-27] MEDS: diphenhydrAMINE HCl CAP 25 MG CAPSULE PO (21:17)
[2020-08-27 23:45] VITALS: BP 127/87; PULSE 91; RESP 18; TEMP 36.2; O2SAT 95
--- NOTE | 2020-08-28 01:34 | PC.NURSE ---
pt sleeping, respirations even and regular, no evidence of distress noted
[2020-08-28] MEDS: AMOXICILLIN 500 MG CAPSULE 1000 MG PO ×2 (05:19→18:11)
[2020-08-28] MEDS: ALBUTEROL SULFATE (*SP) INHALER 1 PUFF INHALATION ×3 (05:19→18:11)
[2020-08-28 08:00] VITALS: BP 133/91; PULSE 92; RESP 18; TEMP 36.3; O2SAT 97
[2020-08-28 09:16] VITALS: PULSE 92
[2020-08-28] MEDS: FUROSEMIDE 40 MG TABLET PO ×2 (09:16→16:13)
[2020-08-28] MEDS: SACUBITRIL/VALSARTAN 24-26 MG TABLET 1 TAB PO ×2 (09:16→16:14)
[2020-08-28] MEDS: METOPROLOL SUCCINATE EXT REL 50 MG TABCR 100 MG PO (09:16)
[2020-08-28] MEDS: SPIRONOLACTONE 25 MG TABLET PO (09:17)
[2020-08-28] MEDS: ONDANSETRON HCL ODT 4 MG TABLET PO (09:17)
[2020-08-28] MEDS: guaiFENesin 12 HR 600 MG TABCR 1200 MG PO ×2 (09:17→16:13)
[2020-08-28] MEDS: ATORVASTATIN 40 MG TABLET 80 MG PO (09:17)
[2020-08-28] MEDS: MAGNESIUM OXIDE 400 MG TABLET PO (09:17)
[2020-08-28] MEDS: FLUoxetine HCL 10 MG CAPSULE 20 MG PO (09:17)
[2020-08-28] MEDS: PANTOPRAZOLE SOD SESQUIHYDRATE 20 MG TAB PO (09:17)
[2020-08-28] MEDS: POTASSIUM CHLORIDE 20 MEQ TABLET PO ×2 (09:17→16:14)
[2020-08-28 16:00] VITALS: BP 128/83; PULSE 91; RESP 18; TEMP 37; O2SAT 96
[2020-08-28] MEDS: ALPRAZolam (*CRX) 0.5 MG TABLET PO ×2 (16:13→20:53)
[2020-08-28] MEDS: diphenhydrAMINE HCl CAP 25 MG CAPSULE PO (19:11)
[2020-08-28] MEDS: traMADol HCL (*CRX) 25 MG TABLET PO (19:12)
--- NOTE | 2020-08-28 19:56 | PC.NURSE ---
pt sitting up at bedside, reports no feelings of drowsiness from benadryl or tramadol, charge nurse notified of her request for sleeping aid
--- NOTE | 2020-08-28 21:30 | PC.NURSE ---
Patient requested additional medication as sleep aid. 1x extra dose of lorazapam ordered
[2020-08-29] VITALS: BP 121/87; PULSE 89; RESP 20; TEMP 36.2; O2SAT 96
[2020-08-29] MEDS: ALBUTEROL SULFATE (*SP) INHALER 1 PUFF INHALATION ×4 (00:23→17:16)
[2020-08-29] MEDS: ALPRAZolam (*CRX) 0.5 MG TABLET PO ×2 (00:27→18:30)
--- NOTE | 2020-08-29 01:52 | PC.NURSE ---
Patient appears to be sleeping. Breathing appears unlabored, no signs of distress are observed.
[2020-08-29 08:00] VITALS: BP 116/83; PULSE 90; RESP 20; TEMP 36.2; O2SAT 97
[2020-08-29 08:59] VITALS: PULSE 90
[2020-08-29] MEDS: METOPROLOL SUCCINATE EXT REL 50 MG TABCR 100 MG PO (08:59)
[2020-08-29] MEDS: SACUBITRIL/VALSARTAN 24-26 MG TABLET 1 TAB PO ×2 (08:59→17:16)
[2020-08-29] MEDS: FLUoxetine HCL 10 MG CAPSULE 20 MG PO (08:59)
[2020-08-29] MEDS: ATORVASTATIN 40 MG TABLET 80 MG PO (08:59)
[2020-08-29] MEDS: PANTOPRAZOLE SOD SESQUIHYDRATE 20 MG TAB PO (09:00)
[2020-08-29] MEDS: MAGNESIUM OXIDE 400 MG TABLET PO (09:00)
[2020-08-29] MEDS: POTASSIUM CHLORIDE 20 MEQ TABLET PO ×2 (09:00→17:16)
[2020-08-29] MEDS: FUROSEMIDE 40 MG TABLET PO ×2 (09:00→17:17)
[2020-08-29] MEDS: SPIRONOLACTONE 25 MG TABLET PO (09:00)
[2020-08-29] MEDS: guaiFENesin 12 HR 600 MG TABCR 1200 MG PO ×2 (09:00→17:17)
[2020-08-29 15:40] VITALS: BP 111/81; PULSE 92; RESP 20; TEMP 36.5; O2SAT 96
[2020-08-29] MEDS: MELATONIN 5 MG TABLET PO (20:41)
[2020-08-29] MEDS: traMADol HCL (*CRX) 25 MG TABLET PO (20:41)
[2020-08-30] VITALS: BP 141/95; PULSE 89; RESP 16; TEMP 36.2; O2SAT 97
[2020-08-30] MEDS: ALPRAZolam (*CRX) 0.5 MG TABLET PO ×4 (00:36→21:10)
[2020-08-30] MEDS: ALBUTEROL SULFATE (*SP) INHALER 1 PUFF INHALATION ×4 (00:37→17:13)
[2020-08-30 07:35] VITALS: BP 114/70; PULSE 91; RESP 20; TEMP 35.9; O2SAT 95
[2020-08-30 09:25] VITALS: PULSE 91
[2020-08-30] MEDS: SACUBITRIL/VALSARTAN 24-26 MG TABLET 1 TAB PO ×2 (09:25→17:13)
[2020-08-30] MEDS: guaiFENesin 12 HR 600 MG TABCR 1200 MG PO ×2 (09:25→17:13)
[2020-08-30] MEDS: METOPROLOL SUCCINATE EXT REL 50 MG TABCR 100 MG PO (09:25)
[2020-08-30] MEDS: PANTOPRAZOLE SOD SESQUIHYDRATE 20 MG TAB PO (09:26)
[2020-08-30] MEDS: POTASSIUM CHLORIDE 20 MEQ TABLET PO ×2 (09:26→17:13)
[2020-08-30] MEDS: FUROSEMIDE 40 MG TABLET PO ×2 (09:26→17:13)
[2020-08-30] MEDS: MAGNESIUM OXIDE 400 MG TABLET PO (09:26)
[2020-08-30] MEDS: FLUoxetine HCL 10 MG CAPSULE 20 MG PO (09:26)
[2020-08-30] MEDS: SPIRONOLACTONE 25 MG TABLET PO (09:26)
[2020-08-30] MEDS: ATORVASTATIN 40 MG TABLET 80 MG PO (09:26)
[2020-08-30] MEDS: traMADol HCL (*CRX) 25 MG TABLET PO ×2 (09:32→21:10)
[2020-08-30 16:30] VITALS: BP 119/77; PULSE 90; RESP 18; TEMP 36.2; O2SAT 98
--- NOTE | 2020-08-30 18:40 | PC.NURSE ---
Patient sleeping quietly in bed with hob elevated. No distress noted. Call light at side.
[2020-08-30] MEDS: MELATONIN 5 MG TABLET PO (21:10)
[2020-08-31] VITALS: BP 123/84; PULSE 90; RESP 20; TEMP 36; O2SAT 98
[2020-08-31] MEDS: ALBUTEROL SULFATE (*SP) INHALER 1 PUFF INHALATION ×4 (00:09→17:42)
[2020-08-31] MEDS: ALPRAZolam (*CRX) 0.5 MG TABLET PO ×3 (03:13→17:47)
[2020-08-31 05:51] LABS: Hematocrit 29.5 % (35.0-42.0); Hemoglobin 9.1 g/dL (11.7-13.8); Mean Corpuscular HGB Conc 30.8 g/dL (32.0-36.0); Mean Corpuscular Hemoglobin 33.1 pg (27.0-31.0); Mean Corpuscular Volume 107.3 fL (78.0-102.0); Mean Platelet Volume 10.6 fl (9.2-11.8); Platelet Count Result 125 K/mm3 (150-420); Red Blood Count 2.75 M/mm3 (4.20-5.40); Red Cell Distribution Width 20.7 % (11.6-14.4); White Blood Count 5.4 K/mm3 (4.8-10.8)
[2020-08-31 06:02] LABS: Anion Gap 3 mmol/L (8-16); Blood Urea Nitrogen 8 mg/dL (7-18); Calcium 8.8 mg/dL (8.5-10.1); Carbon Dioxide 40 mmol/L (21-32); Chloride 102 mmol/L (98-108); Estimated CRCL calculation 65 ml/min; Estimated Glomerular Filt Rate > 60; Glucose 106 mg/dL (70-99); Osmolality Calculated 298 mOsm/kg (285-295); Sodium 145 mmol/L (136-145)
[2020-08-31 07:53] VITALS: BP 112/75; PULSE 91; RESP 20; TEMP 36.2; O2SAT 96
[2020-08-31 08:47] VITALS: PULSE 91
[2020-08-31] MEDS: SACUBITRIL/VALSARTAN 24-26 MG TABLET 1 TAB PO ×2 (08:47→17:41)
[2020-08-31] MEDS: MAGNESIUM OXIDE 400 MG TABLET PO (08:47)
[2020-08-31] MEDS: FUROSEMIDE 40 MG TABLET PO ×2 (08:47→17:41)
[2020-08-31] MEDS: METOPROLOL SUCCINATE EXT REL 50 MG TABCR 100 MG PO (08:47)
[2020-08-31] MEDS: PANTOPRAZOLE SOD SESQUIHYDRATE 20 MG TAB PO (08:48)
[2020-08-31] MEDS: ATORVASTATIN 40 MG TABLET 80 MG PO (08:48)
[2020-08-31] MEDS: guaiFENesin 12 HR 600 MG TABCR 1200 MG PO ×2 (08:48→17:41)
[2020-08-31] MEDS: SPIRONOLACTONE 25 MG TABLET PO (08:48)
[2020-08-31] MEDS: FLUoxetine HCL 10 MG CAPSULE 20 MG PO (08:48)
[2020-08-31] MEDS: POTASSIUM CHLORIDE 20 MEQ TABLET PO ×2 (08:48→17:41)
--- NOTE | 2020-08-31 10:40 | PC.NURSE ---
Patient sitting up in chair resting quietly. Denies any needs. Call light at side.
--- NOTE | 2020-08-31 13:22 | WPDPN ---
Progress Note: A&P Assessment and Plan (1) Generalized weakness: Code(s): R53.1 - Weakness Status: Acute Assessment and Plan: ? Exhibit tolerance during physical activity as evidenced by a normal fluctuation of vital signs during physical activity. ? Patient will be ability to perform required activities of daily living. ? Provide appropriate nutrition for healing and strength. ? Use appropriate to prevent falls. ? Continue physical therapy/occupational therapy. (2) S/P placement of cardiac pacemaker: Code(s): Z95.0 - Presence of cardiac pacemaker Status: Acute Assessment and Plan: 08/13/2020- micra pacemaker implant and ablasion due to afib with rvr cabg 2014 hx of pericardial effusion and ischemic cardiomyopathy (3) Lung cancer: Code(s): C34.90 - Malignant neoplasm of unspecified part of unspecified bronchus or lung Status: Acute Assessment and Plan: F/U with Dr. Chan, oncologist, in [place] on 09/09 at 2:30 Patient diagnosed with lung cancer 4 years ago treated with chemo, radiation with successful Reoccurrence of lung CA May 2019 Stop smoking March 2019 (4) COPD with acute exacerbation: Code(s): J44.1 - Chronic obstructive pulmonary disease with (acute) exacerbation Status: Acute Assessment and Plan: Continue albuterol and Symbicort (5) Hyperlipidemia: Code(s): E78.5 - Hyperlipidemia, unspecified Status: Acute Assessment and Plan: Continue statins (6) Hypertension: Code(s): I10 - Essential (primary) hypertension Status: Acute Assessment and Plan: Continue metoprolol 100 mg daily Continue spironolactone 25 mg daily and losartan/sacubitril 26/24 twice daily Vital signs as ordered Will adjust as needed Review of Systems Review of Systems: All systems reviewed & are unremarkable except as noted in HPI and below (10 point system reviewed) Exam Narrative: Exam Narrative: GENERAL: This is a well-nourished, well-developed patient, in no apparent distress. HEAD: normocephalic, atraumatic. EYES: PERRL. Sclera clear/white. Vision is grossly intact. EARS: External ears normal, auditory canals clear and without drainage, TMs normal without perforation. Hearing grossly intact. NOSE: External nose normal with no obvious nasal discharge, nares without redness, no rhinorrhea. THROAT: Mucous membranes moist, posterior pharynx clear. NECK: Neck supple, non-tender without lymphadenopathy, masses or thyromegaly. CARDIOVASCULAR: Regular rate and rhythm pacemaker in place RESPIRATORY: Diminished breath sounds. In all mayo GASTROINTESTINAL: Abdomen soft, non-tender, nondistended. Bowel sounds are active. No hepato-splenomegaly, or palpable masses. No guarding. SKIN: warm, intact with no suspicious lesions or rash, good texture and turgor. NEURO: awake, alert, and oriented to person, place and time. There were no obvious focal neurologic abnormalities. Steady gait EXTREMITIES: Normal range of motion. No edema. No calf tenderness. Negative Homans sign bilaterally. BACK: Nontender without deformity or crepitance. No flank tenderness. Objective Data Vital Signs Vital Signs: Vital Signs - 24 hr 08/30/20 16:30 08/31/20 00:00 08/31/20 07:53 Temperature 97.2 F L 96.8 F L 97.2 F L Pulse Rate 90 90 91 Respiratory Rate 18 20 20 Blood Pressure 119/77 123/84 112/75 Pulse Oximetry 98 98 96 08/31/20 08:47 Temperature Pulse Rate 91 Respiratory Rate Blood Pressure Pulse Oximetry Intake/Output Intake/Output: Intake & Output 08/28/20 08/29/20 08/30/20 08/31/20 23:59 23:59 23:59 23:59 Intake Total 818 219 2645 510 Balance 399 137 0918 510 Meds/Results Medications: Active Medications Generic Name Dose Route Start Last Admin Trade Name Freq PRN Reason Stop Dose Admin Acetaminophen 325 mg 08/24/20 14:38 Acetaminophen 325 Mg Tablet PO Q4H PRN Mild Pain (1-3) or Fever
[2020-08-31 15:40] VITALS: BP 101/70; PULSE 81; RESP 18; TEMP 36.2; O2SAT 96
--- NOTE | 2020-08-31 18:15 | PC.NURSE ---
Patient resting quietly in bed with hob elevated. Denies any needs. 02@3l per nc on. call chavez at side.
[2020-08-31 19:39] VITALS: PULSE 81; RESP 18; O2SAT 96
[2020-08-31] MEDS: MELATONIN 5 MG TABLET PO (20:29)
[2020-08-31] MEDS: BUDESONIDE/FORMOTEROL (*SP) 160-4.5 MCG 6 GM INH 2 PUFF INHALATION (20:31)
[2020-09-01] VITALS: BP 112/83; PULSE 92; RESP 20; TEMP 36; O2SAT 98
[2020-09-01] MEDS: ALPRAZolam (*CRX) 0.5 MG TABLET PO ×2 (00:23→15:48)
[2020-09-01] MEDS: ALBUTEROL SULFATE (*SP) INHALER 1 PUFF INHALATION ×4 (00:23→20:59)
[2020-09-01] MEDS: traMADol HCL (*CRX) 25 MG TABLET PO ×3 (00:23→20:58)
[2020-09-01 08:00] VITALS: BP 103/68; PULSE 90; RESP 20; TEMP 36.2; O2SAT 98
[2020-09-01] MEDS: ATORVASTATIN 40 MG TABLET 80 MG PO (09:44)
[2020-09-01] MEDS: POTASSIUM CHLORIDE 20 MEQ TABLET PO ×2 (09:44→16:31)
[2020-09-01] MEDS: SPIRONOLACTONE 25 MG TABLET PO (09:45)
[2020-09-01] MEDS: guaiFENesin 12 HR 600 MG TABCR 1200 MG PO ×2 (09:45→16:32)
[2020-09-01] MEDS: FUROSEMIDE 40 MG TABLET PO ×2 (09:45→16:31)
[2020-09-01] MEDS: PANTOPRAZOLE SOD SESQUIHYDRATE 20 MG TAB PO (09:45)
[2020-09-01] MEDS: FLUoxetine HCL 10 MG CAPSULE 20 MG PO (09:45)
[2020-09-01] MEDS: ACETAMINOPHEN 325 MG TABLET PO (09:45)
[2020-09-01 09:46] VITALS: PULSE 90
[2020-09-01] MEDS: MAGNESIUM OXIDE 400 MG TABLET PO (09:46)
[2020-09-01] MEDS: METOPROLOL SUCCINATE EXT REL 50 MG TABCR 100 MG PO (09:46)
[2020-09-01] MEDS: SACUBITRIL/VALSARTAN 24-26 MG TABLET 1 TAB PO ×2 (10:47→20:59)
[2020-09-01] MEDS: BUDESONIDE/FORMOTEROL (*SP) 160-4.5 MCG 6 GM INH 2 PUFF INHALATION ×2 (10:47→20:59)
[2020-09-01 15:53] VITALS: BP 101/63; PULSE 89; RESP 20; TEMP 36.3; O2SAT 97
[2020-09-01] MEDS: MELATONIN 5 MG TABLET PO (20:58)
[2020-09-02] VITALS: BP 119/79; PULSE 90; RESP 18; TEMP 36.4; O2SAT 99
[2020-09-02] MEDS: ALPRAZolam (*CRX) 0.5 MG TABLET PO ×2 (00:23→20:15)
[2020-09-02] MEDS: ALBUTEROL SULFATE (*SP) INHALER 1 PUFF INHALATION ×4 (00:24→18:00)
[2020-09-02 08:00] VITALS: BP 117/77; PULSE 89; RESP 20; TEMP 36.2; O2SAT 98
[2020-09-02] MEDS: traMADol HCL (*CRX) 25 MG TABLET PO ×2 (08:50→20:15)
[2020-09-02] MEDS: FLUoxetine HCL 10 MG CAPSULE 20 MG PO (08:52)
[2020-09-02 08:53] VITALS: PULSE 89
[2020-09-02] MEDS: POTASSIUM CHLORIDE 20 MEQ TABLET PO ×2 (08:53→16:31)
[2020-09-02] MEDS: SPIRONOLACTONE 25 MG TABLET PO (08:53)
[2020-09-02] MEDS: METOPROLOL SUCCINATE EXT REL 50 MG TABCR 100 MG PO (08:53)
[2020-09-02] MEDS: guaiFENesin 12 HR 600 MG TABCR 1200 MG PO ×2 (08:54→16:31)
[2020-09-02] MEDS: ATORVASTATIN 40 MG TABLET 80 MG PO (08:54)
[2020-09-02] MEDS: MAGNESIUM OXIDE 400 MG TABLET PO (08:54)
[2020-09-02] MEDS: ACETAMINOPHEN 325 MG TABLET PO (08:55)
[2020-09-02] MEDS: BUDESONIDE/FORMOTEROL (*SP) 160-4.5 MCG 6 GM INH 2 PUFF INHALATION ×2 (08:55→20:14)
[2020-09-02] MEDS: PANTOPRAZOLE SOD SESQUIHYDRATE 20 MG TAB PO (08:55)
[2020-09-02] MEDS: SACUBITRIL/VALSARTAN 24-26 MG TABLET 1 TAB PO ×2 (08:55→16:31)
[2020-09-02] MEDS: FUROSEMIDE 40 MG TABLET PO ×2 (08:55→16:31)
[2020-09-02 16:00] VITALS: BP 112/68; PULSE 91; RESP 20; TEMP 36.9; O2SAT 99
--- NOTE | 2020-09-02 20:03 | PC.NURSE ---
Jj delivered patient's walker. Walker placed in her room.
[2020-09-02] MEDS: MELATONIN 5 MG TABLET PO (20:13)
[2020-09-02] MEDS: hydrOXYzine pamoate 25 MG CAPSULE 50 MG PO (22:47)
[2020-09-03] VITALS: BP 126/84; PULSE 90; RESP 16; TEMP 36.2; O2SAT 98
[2020-09-03] MEDS: ALBUTEROL SULFATE (*SP) INHALER 1 PUFF INHALATION ×3 (00:45→12:38)
[2020-09-03] MEDS: ONDANSETRON HCL ODT 4 MG TABLET PO ×2 (00:52→07:37)
[2020-09-03] MEDS: ALPRAZolam (*CRX) 0.5 MG TABLET PO (02:26)
[2020-09-03] MEDS: CALCIUM CARBONATE (TUMS) 500 MG (200 MG ELEMENTAL) PO (07:42)
[2020-09-03] MEDS: ACETAMINOPHEN 325 MG TABLET PO (07:42)
[2020-09-03 08:00] VITALS: BP 115/83; PULSE 81; RESP 20; TEMP 36.3; O2SAT 93
[2020-09-03] MEDS: SACUBITRIL/VALSARTAN 24-26 MG TABLET 1 TAB PO (10:08)
[2020-09-03] MEDS: traMADol HCL (*CRX) 25 MG TABLET PO (10:08)
[2020-09-03 10:09] VITALS: PULSE 81
[2020-09-03] MEDS: FLUoxetine HCL 10 MG CAPSULE 20 MG PO (10:09)
[2020-09-03] MEDS: guaiFENesin 12 HR 600 MG TABCR 1200 MG PO (10:09)
[2020-09-03] MEDS: METOPROLOL SUCCINATE EXT REL 50 MG TABCR 100 MG PO (10:09)
[2020-09-03] MEDS: FUROSEMIDE 40 MG TABLET PO (10:09)
[2020-09-03] MEDS: SPIRONOLACTONE 25 MG TABLET PO (10:10)
[2020-09-03] MEDS: MAGNESIUM OXIDE 400 MG TABLET PO (10:10)
[2020-09-03] MEDS: PANTOPRAZOLE SOD SESQUIHYDRATE 20 MG TAB PO (10:10)
[2020-09-03] MEDS: POTASSIUM CHLORIDE 20 MEQ TABLET PO (10:11)
[2020-09-03] MEDS: hydrOXYzine pamoate 25 MG CAPSULE 50 MG PO (10:11)
[2020-09-03] MEDS: ATORVASTATIN 40 MG TABLET 80 MG PO (10:11)
[2020-09-03] MEDS: BUDESONIDE/FORMOTEROL (*SP) 160-4.5 MCG 6 GM INH 2 PUFF INHALATION (10:15)
--- NOTE | 2020-09-03 10:32 | PM.DS ---
DS: Admitting Diagnosis Admitting Diagnosis Admitting Diagnosis: REHAB DS: Discharge Diagnosis Discharge Diagnosis (1) Generalized weakness: Code(s): R53.1 - Weakness Status: Acute Assessment and Plan: ? Exhibit tolerance during physical activity as evidenced by a normal fluctuation of vital signs during physical activity. ? Patient will be ability to perform required activities of daily living. ? Provide appropriate nutrition for healing and strength. ? Use appropriate to prevent falls. ? Has improved. (2) S/P placement of cardiac pacemaker: Code(s): Z95.0 - Presence of cardiac pacemaker Status: Acute Assessment and Plan: 08/13/2020- micra pacemaker implant and ablasion due to afib with rvr cabg 2014 hx of pericardial effusion and ischemic cardiomyopathy Follow with casing operator (3) Lung cancer: Code(s): C34.90 - Malignant neoplasm of unspecified part of unspecified bronchus or lung Status: Acute Assessment and Plan: F/U with Dr. Chan, oncologist, in [place] on 09/09 at 2:30 Patient diagnosed with lung cancer 4 years ago treated with chemo, radiation with successful Reoccurrence of lung CA May 2019 Stop smoking March 2019 (4) COPD with acute exacerbation: Code(s): J44.1 - Chronic obstructive pulmonary disease with (acute) exacerbation Status: Acute Assessment and Plan: Continue albuterol and Symbicort (5) Hyperlipidemia: Code(s): E78.5 - Hyperlipidemia, unspecified Status: Acute Assessment and Plan: Continue statins (6) Hypertension: Code(s): I10 - Essential (primary) hypertension Status: Acute Assessment and Plan: Stable Continue metoprolol 100 mg daily Continue spironolactone 25 mg daily and losartan/sacubitril 26/24 twice daily DS: Summary Time Spent with Patient Time attestation: Total time spent providing and/or coordinating discharge services:60 Exam Narrative: Exam Narrative: GENERAL: This is a well-nourished, well-developed patient, in no apparent distress. HEAD: normocephalic, atraumatic. EYES: PERRL. Sclera clear/white. Vision is grossly intact. EARS: External ears normal, auditory canals clear and without drainage, TMs normal without perforation. Hearing grossly intact. NOSE: External nose normal with no obvious nasal discharge, nares without redness, no rhinorrhea. THROAT: Mucous membranes moist, posterior pharynx clear. NECK: Neck supple, non-tender without lymphadenopathy, masses or thyromegaly. CARDIOVASCULAR: Regular rate and rhythm pacemaker in place RESPIRATORY: Diminished breath sounds. In all mayo GASTROINTESTINAL: Abdomen soft, non-tender, nondistended. Bowel sounds are active. No hepato-splenomegaly, or palpable masses. No guarding. SKIN: warm, intact with no suspicious lesions or rash, good texture and turgor. NEURO: awake, alert, and oriented to person, place and time. There were no obvious focal neurologic abnormalities. Steady gait EXTREMITIES: Normal range of motion. No edema. No calf tenderness. Negative Homans sign bilaterally. BACK: Nontender without deformity or crepitance. No flank tenderness. Discharge Plan Discharge Attending physician on discharge: Kavon Morrison Discharging Clinician: Oscar Rivers Anticipated Discharge Date/Time: 09/03/20 12:00 Patient Disposition: Home Health Service Activity: as tolerated Diet: regular and heart healthy Discharge Instructions: Follow-up with your primary provider in 1 to 2 weeks follow up with casing operator in 2 weeks Bee Bedoya [facility] TO FOLLOW AT DISCHARGE. PHONE: NURSING TO FAX D/C INSTRUCTIONS TO Patient Instructions: Antibiotic Form, Pacemaker (DC) Stand Alone Forms: General Discharge Information Follow-up/Referrals: Nii Chan MD [Other] - 09/09/20 2:30 pm Oncology [Other] Phuong Wright NP [Prim
--- NOTE | 2020-09-10 14:08 | PC.NURSE ---
Pt states she understood her discharge instructions and stated it was excellent, I really appreciate it .
== END 2020-09-03 14:30 | disposition home health service (06) | DRG 947 ==
PROVIDERS: Nurse Practitioner; Nurse Practitioner Family; Admitting Provider Family Medicine; PCP Nurse Practitioner Family; Visit Provider Family Medicine
DX: R53.1 Weakness (principal); A41.9 Sepsis, unspecified organism; C34.90 Malignant neoplasm of unspecified part of unspecified bronchus or lung; I50.22 Chronic systolic (congestive) heart failure; J44.1 Chronic obstructive pulmonary disease with (acute) exacerbation; K52.9 Noninfective gastroenteritis and colitis, unspecified; I11.0 Hypertensive heart disease with heart failure; I71.4 Abdominal aortic aneurysm, without rupture; F41.9 Anxiety disorder, unspecified; E78.5 Hyperlipidemia, unspecified; Z87.891 Personal history of nicotine dependence; Z95.0 Presence of cardiac pacemaker
CPT/HCPCS: 36415; 71045; 80048; 80053; 83735; 85025; 85027; 85055; 85610; 85730; 86140; 93005; 97110; 97161; 97165; 97530; 97535; A9270; J3475

== ENCOUNTER 2020-09-16 12:25 | Outpatient (CLI) | payer MEDICARE, SELFPAY ==
[2020-09-16 13:17] LABS: Alanine Aminotransferase 55 U/L (14-59); Albumin Level 2.9 g/dL (3.4-5.0); Alkaline Phosphatase 124 U/L (46-116); Anion Gap 5 mmol/L (8-16); Aspartate Amino Transferase 27 U/L (15-37); Bilirubin,Total 0.7 mg/dL (0.00-1.00); Blood Urea Nitrogen 22 mg/dL (7-18); Calcium 8.2 mg/dL (8.5-10.1); Carbon Dioxide 36 mmol/L (21-32); Chloride 106 mmol/L (98-108); Estimated Glomerular Filt Rate 59; Glucose 159 mg/dL (70-99); Osmolality Calculated 310 mOsm/kg (285-295); Potassium 3.7 mmol/L (3.5-5.1); Sodium 147 mmol/L (136-145); Total Protein 5.3 g/dL (6.4-8.2)
== END 2020-09-16 12:26 | disposition home or self-care (01) ==
LOC: CHSLAB 12:27
PROVIDERS: PCP Nurse Practitioner Family; Visit Provider Nurse Practitioner Family
DX: E87.6 Hypokalemia (principal); R73.09 Other abnormal glucose; E83.42 Hypomagnesemia
CPT/HCPCS: 36415; 80053; 83036; 83735

== ENCOUNTER 2020-09-23 15:08 | Outpatient (CLI) | payer MEDICARE, OTHER, SELFPAY ==
--- NOTE | ~2020-09-23 | XR_ITS ---
EXAMINATION: XR chest 2V DATE: 09/23/2020 15:58 INDICATION: Pneumonia, unspecified organism. TECHNIQUE: Frontal and lateral views of the chest were obtained. COMPARISON: Chest single view 08/25/2020, CT abdomen and pelvis 01/08/2018 FINDINGS: There is a small right pleural effusion. There is diffuse interstitial pattern in the lungs , consistent with pulmonary edema. There is a mass in left lung upper lobe. There are airspace opacit ies at right lung base. No pneumothorax. Cardiomegaly is noted. Median sternotomy wires are noted. Th ere is electronic implant in left anterior chest wall. There is a right internal jugular port with ti p in right atrium. Bilateral breast implants are noted. IMPRESSION: 1. Mild pulmonary edema with small right pleural effusion. 2. Airspace opacities at right lung base, consistent with atelectasis versus pneumonia. 3. Mass in left lung upper lobe, likely malignancy and treatment change. 4. Cardiomegaly. Reviewed, dictated and finalized at location B. EDUCATIONAL AIDE IMPRESSION: 1. Mild pulmonary edema with small right pleural effusion. 2. Airspace opacities at right lung base, consistent with atelectasis versus pn eumonia. 3. Mass in left lung upper lobe, likely malignancy and treatment change. 4. Cardiomegaly.
[2020-09-23 15:52] LABS: Basophils Absolute Auto 0.03 K/mm3 (0.00-0.10); Basophils Percent Auto 0.4 % (0.0-1.0); Eosinophils Absolute Auto 0.04 K/mm3 (0.02-0.50); Eosinophils Percent Auto 0.5 % (1.0-6.0); Hematocrit 36.8 % (35.0-42.0); Immature Granulocyte Absolute 0.03 K/mm3 (0.00-0.00); Immature Granulocyte Percent A 0.4 % (0.0-0.0); Lymphocytes Absolute Auto 0.69 K/mm3 (1.10-4.50); Lymphocytes Percent Auto 9.3 % (18.0-42.0); Mean Corpuscular HGB Conc 29.9 g/dL (32.0-36.0); Mean Corpuscular Hemoglobin 34.3 pg (27.0-31.0); Mean Corpuscular Volume 114.6 fL (78.0-102.0); Mean Platelet Volume 10.7 fl (9.2-11.8); Monocytes Absolute Auto 0.62 K/mm3 (0.10-0.90); Monocytes Percent Auto 8.4 % (2.0-11.0); Platelet Count Result 116 K/mm3 (150-420); Red Blood Count 3.21 M/mm3 (4.20-5.40); Red Cell Distribution Width 21.8 % (11.6-14.4); White Blood Count 7.4 K/mm3 (4.8-10.8)
[2020-09-23 16:28] LABS: BNP 2590 pg/mL (0-100)
[2020-09-23 16:39] LABS: Alanine Aminotransferase 45 U/L (14-59); Albumin Level 3.1 g/dL (3.4-5.0); Alkaline Phosphatase 110 U/L (46-116); Anion Gap 4 mmol/L (8-16); Aspartate Amino Transferase 22 U/L (15-37); Bilirubin,Total 0.8 mg/dL (0.00-1.00); Blood Urea Nitrogen 16 mg/dL (7-18); Calcium 8.7 mg/dL (8.5-10.1); Carbon Dioxide 36 mmol/L (21-32); Chloride 108 mmol/L (98-108); Estimated Glomerular Filt Rate > 60; Glucose 93 mg/dL (70-99); Osmolality Calculated 307 mOsm/kg (285-295); Potassium 3.9 mmol/L (3.5-5.1); Sodium 148 mmol/L (136-145); Total Protein 5.7 g/dL (6.4-8.2)
== END 2020-09-23 15:09 | disposition home or self-care (01) ==
LOC: CHSLAB 15:12
PROVIDERS: PCP Nurse Practitioner Family; Visit Provider Nurse Practitioner Family
DX: J18.9 Pneumonia, unspecified organism (principal); Z00.00 Encounter for general adult medical examination without abnormal findings; I50.22 Chronic systolic (congestive) heart failure
CPT/HCPCS: 36415; 71046; 80053; 83880; 85025